=== PATIENT | female | born 1970 | race Caucasian/White ===

== ENCOUNTER → 2016-10-26 | Day surgery (SDC) | payer OTHER, MEDICAID ==
[~2016-10-26] VITALS: Ht 152.4 cm; Wt 44.3 kg
[~2016-10-26] MED LIST: "\\\"PREP SPRAY\\\"-TIN4 OZ"; ASPIRIN325 MG PO; BRILINTA90 MG PO; BUMEX1 MG; CALCIUM 600 +1 EA13 PO; CALCIUM CITRAT1 EAC1; CEPASTAT1 LOZ PO; CITRACAL+D(315M1 TAB; COLACE100 MG PO; CORDARONE,PACE200 MG; CORDARONE,PACE200 MG PO; COREG25 MG PO; DRISDOL 5050000 UNIT PO; FEOSOL325 MG PO; FLONASE 50 MCG/16 GM NOSE; GLUCOSE4 GM PO; GLUCOTROL 5MG XL5 MG PO; GLUCOTROL XL2.5 MG PO; ISORDIL40 MG; LANTUS (IN100 UNIT/M; LEVAQUIN750 MG PO; LIPITOR20 M1 PO; MAG-OX-400(241400 MG PO; MIRALAX17 GM PO; NITROSTAT 0.40.4 MG SL; NORCO 5-325 MG1 TAB PO; NORCO 5-325 TA1 EACH PO; OSCAL + D500 MG PO; PHOSLO667 MG; PHOSLO667 MG PO; PRILOSEC20 M1 PO; PRINIVIL OR ZES10 MG PO; PROVENTIL OR V6.7 GM; REGLAN10 MG PO; SENNA LAXATIVE8.6 MG PO; SODIUM BICARBO650 MG PO; TYLENOL EXTRA500 MG PO; TYLENOL650 MG PO; VELTASSA8.4 GM PO; VITAMIN D5000 UNI1 PO; VITAMIN E1000 UNI1 PO; VITAMIN E400 UNI2 PO; ZOCOR40 MG; ZYLOPRIM100 MG PO
--- NOTE | ~2016-10-26 | OR ---
PATIENT'S NAME: MARILIN JUAREZ [facility] AGE: 46 Y [address] ROOM: [place] [address] [place] [facility] [place] DATE: 10/26/2016 OR/Procedure Report DISCHARGE DATE: FAMILY PHYSICIAN: Jack Ott MD ATTENDING PHYSICIAN: Jean Carlos Jiménez SURGEON: Jean Carlos Jiménez MD BUSINESS UNIT CONTROLLER: Jessica Marte PA-C DATE OF PROCEDURE: 10/26/2016 PREOPERATIVE DIAGNOSIS: End-stage renal disease with need for dialysis. POSTOPERATIVE DIAGNOSIS: End-stage renal disease with need for dialysis. PROCEDURE: Laparoscopic peritoneal dialysis catheter placement. FINDINGS: The patient did have midline adhesions from previous operations. There appeared to be some diastasis, a clear hernia defect was not visible in the epidural with no significant peritoneum on the left lower abdominal wall. ESTIMATED BLOOD LOSS: 20 mL. COMPLICATIONS: None. INDICATIONS: The patient is a [id number], who has end-stage renal disease. She is in need of dialysis. Nephrology discussed with her various options. Ultimately, she wished to proceed with peritoneal dialysis. Risks, benefits, and alternatives of peritoneal dialysis catheter were discussed with the patient. She wished to proceed. DESCRIPTION OF PROCEDURE: The patient was taken to the operating room. She was supine. She was given IV sedation, subsequently intubated. Abdomen was prepped with ChloraPrep and sterilely draped. Using an optical viewing trocar, a small incision was created in the right upper abdomen and the trocar was inserted under direct visualization. CO2 was insufflated in the preperitoneal space. Camera was inserted. There was no injury from initial trocar placement. Following this, we had marked her preoperatively for catheter placement. A transverse incision was created just superior into the left of the umbilicus carried into subcutaneous tissues down to the anterior rectus sheath. A pursestring suture of 0 Vicryl suture was then inserted and an 8-mm trocar was inserted around pursestring suture posterior to the rectus. Under direct visualization this was then slowly advanced through the posterior rectus sheath was then brought out through the peritoneum in the midline. Prior to doing this, the patient did have midline adhesions from her previous operation. There was really no significant peritoneum on the left abdominal wall, felt to be from previous operation. There were adhesions in the midline PATIENT'S NAME: MARILIN JUAREZ [facility] AGE: 46 Y [address] ROOM: [place] [address] LOCATION: [facility] [place] DATE: 10/26/2016 OR/Procedure Report DISCHARGE DATE: FAMILY PHYSICIAN: Jack Ott MD ATTENDING PHYSICIAN: Jean Carlos Jiménez that had to be taken down, because of this a second 5 mm trocar was also placed this was done both bluntly and with electrocautery. These were omental adhesions in the midline it was ultimately felt to be only diastasis. There was some concerns for hernia, but after further inspection and now this was felt to not be the case. Peritoneal dialysis catheter was then inserted through the 8 mm trocar down into the pelvis. The 8 mm trocar was then removed. suture was then secured to the proximal end of the catheter and the cath was tunneled in subcutaneous tissues and brought out through separate stab incision in the left upper quadrant. Saline was then infused into the pelvis and had free flow of saline into the pelvis, this was then stumped out and again free flow out of the pelvis. Hemostasis was checked no pneumoperitoneum had been released, and the trocars had been removed, they were hemostatic. The skin edges of all the trocar sites were approximated with 4-0 Monocryl suture. Steri-Strips and sterile dressings were placed. The transverse was also placed on peritoneal dialysis catheter. The catheter was flushed with 10 mL of heparinized saline. She was extubated and sent to recovery and tolerated this well. MD ANITA RAYAO/vinayl /[id number] d: 10/26/16 1846 t: 10/28/16 1455, OPERATIVE SUMMARY
[2016-10-26 06:57] LABS: BASOPHIL # 0.1 K/uL (0.0-0.2); BASOPHIL % 0.9 %; EOSINOPHIL # 0.2 K/uL (0.0-0.5); EOSINOPHIL % 2.3 %; HEMATOCRIT 33.5 % (33.0-46.0); HEMOGLOBIN 11.3 g/dL (10.0-15.0); IMMATURE GRANULOCYTE % 0.1 %; LYMPHOCYTE # 3.1 K/uL (0.8-4.0); LYMPHOCYTE % 41.1 %; MCH 32.8 pg (27.0-34.0); MCHC 33.7 gm/dL (32.0-36.5); MCV 97.1 fl (83.0-98.0); MONOCYTE # 0.5 K/uL (0.0-1.0); MONOCYTE % 6.4 %; MPV 10.5 fl (9.4-12.4); NEUTROPHIL # (ANC) 3.7 K/uL (1.8-7.8); NEUTROPHIL % 49.2 %; NRBC % 0 /100WBC (0-0.00); PLATELET COUNT 206 K/uL (150-450); RBC 3.45 M/uL (3.50-5.50); RDW-CV 12.4 % (11.9-14.6); WBC 7.5 K/uL (4.0-11.0)
[2016-10-26 07:13] LABS: ANION GAP 14.2 (10.0-19.0); CALCIUM 8.9 mg/dL (8.5-10.5); POTASSIUM 4.2 mMol/L (3.7-5.1); TOTAL BILIRUBIN 0.2 mg/dL (0.0-1.5); TOTAL PROTEIN 7.4 g/dL (6.0-8.4)
[2016-10-26 07:17] LABS: CREATININE 4.5 mg/dL (0.5-1.1)
== END | disposition disaster alternative care site (69) ==
LOC: GPOC 10-20 10:00 → GSDC 06:32 → GPOC 10:00
PROVIDERS: Surgery
PROC: 3E1M39Z Irrigation of Peritoneal Cavity using Dialysate, Percutaneous Approach (ICD-10-PCS; principal; 2016-10-26)
DX: E10.22 Type 1 diabetes mellitus with diabetic chronic kidney disease (principal); I12.0 Hypertensive chronic kidney disease with stage 5 chronic kidney disease or end stage renal disease; N18.6 End stage renal disease; I25.10 Atherosclerotic heart disease of native coronary artery without angina pectoris; E21.3 Hyperparathyroidism, unspecified; E83.51 Hypocalcemia; Z88.0 Allergy status to penicillin; Z99.2 Dependence on renal dialysis; Z79.82 Long term (current) use of aspirin; Z79.899 Other long term (current) drug therapy; Z79.84 Long term (current) use of oral hypoglycemic drugs; Z98.890 Other specified postprocedural states
CPT/HCPCS: C1750; C1881; J0690; J1100; J1642; J2001; J2405; J2550; J3010; J7030